=== PATIENT | male | born 1960 | race Caucasian/White ===

== ENCOUNTER → 2019-08-29 11:48 | Outpatient (BNVA) | payer MEDICARE, SELFPAY | PROVIDERS: PCP Nurse Practitioner Family; Visit Provider Nurse Practitioner Family | DX: E78.5 Hyperlipidemia, unspecified (principal); E03.9 Hypothyroidism, unspecified; H93.13 Tinnitus, bilateral; H91.93 Unspecified hearing loss, bilateral; J32.0 Chronic maxillary sinusitis; F41.9 Anxiety disorder, unspecified; J44.9 Chronic obstructive pulmonary disease, unspecified; F32.9 Major depressive disorder, single episode, unspecified; F17.200 Nicotine dependence, unspecified, uncomplicated; I10 Essential (primary) hypertension | CPT/HCPCS: 80053; 80061; 84443; 85025 ==

== ENCOUNTER → 2019-08-30 11:52 | Outpatient (BNVA) | payer MEDICARE, SELFPAY | PROVIDERS: PCP Nurse Practitioner Family; Visit Provider Nurse Practitioner Family | DX: E78.5 Hyperlipidemia, unspecified (principal); E03.9 Hypothyroidism, unspecified; H93.13 Tinnitus, bilateral; H91.93 Unspecified hearing loss, bilateral; J32.0 Chronic maxillary sinusitis; F41.9 Anxiety disorder, unspecified; J44.9 Chronic obstructive pulmonary disease, unspecified; F32.9 Major depressive disorder, single episode, unspecified; F17.200 Nicotine dependence, unspecified, uncomplicated; I10 Essential (primary) hypertension | CPT/HCPCS: 84439; 84481 ==

== ENCOUNTER → 2021-01-01 13:20 | Outpatient (BNVA) | payer MEDICARE, SELFPAY | PROVIDERS: PCP Nurse Practitioner Family; Visit Provider Nurse Practitioner Family | DX: E03.9 Hypothyroidism, unspecified (principal); I10 Essential (primary) hypertension; R53.83 Other fatigue; G47.10 Hypersomnia, unspecified; E78.5 Hyperlipidemia, unspecified; J44.9 Chronic obstructive pulmonary disease, unspecified | CPT/HCPCS: 80053; 80061; 82306; 82607; 84403; 84439; 84443; 85025 ==

== ENCOUNTER → 2021-02-09 14:27 | Outpatient (BNVA) | payer MEDICARE, SELFPAY | PROVIDERS: PCP Nurse Practitioner Family; Visit Provider Nurse Practitioner Family | DX: M25.511 Pain in right shoulder (principal); R00.9 Unspecified abnormalities of heart beat | CPT/HCPCS: 73030 ==

== ENCOUNTER 2021-02-17 06:00 | Outpatient (RCR) | payer MEDICARE, SELFPAY | END 2021-02-22 23:59 | disposition home or self-care (01) | LOC: TPT 06:00 | PROVIDERS: PCP Nurse Practitioner Family; Referring Provider Nurse Practitioner Family; Visit Provider Nurse Practitioner Family | DX: M25.511 Pain in right shoulder (principal) | CPT/HCPCS: 97110; 97162 ==

== ENCOUNTER 2021-02-23 06:00 | Outpatient (RCR) | payer MEDICARE, SELFPAY | END 2021-03-16 23:59 | disposition home or self-care (01) | LOC: TPT 06:00 | PROVIDERS: PCP Nurse Practitioner Family; Referring Provider Nurse Practitioner Family; Visit Provider Nurse Practitioner Family | DX: M25.511 Pain in right shoulder (principal) | CPT/HCPCS: 97110 ==

== ENCOUNTER → 2021-12-30 11:59 | Outpatient (BNVA) | payer MEDICARE, SELFPAY | PROVIDERS: PCP Nurse Practitioner Family; Visit Provider Nurse Practitioner Family | DX: E78.5 Hyperlipidemia, unspecified (principal); I10 Essential (primary) hypertension; F41.9 Anxiety disorder, unspecified; F32.A Depression, unspecified; L40.9 Psoriasis, unspecified; L80 Vitiligo; L21.9 Seborrheic dermatitis, unspecified; H10.9 Unspecified conjunctivitis; Z12.5 Encounter for screening for malignant neoplasm of prostate | CPT/HCPCS: 80053; 80061; 84443; 85025; G0103 ==

== ENCOUNTER → 2022-01-07 09:33 | Outpatient (BNVA) | payer MEDICARE, SELFPAY | PROVIDERS: PCP Nurse Practitioner Family; Visit Provider Nurse Practitioner Family | DX: R79.89 Other specified abnormal findings of blood chemistry (principal); E03.9 Hypothyroidism, unspecified | CPT/HCPCS: 84439; 84443; 84481 ==

== ENCOUNTER → 2022-11-11 09:40 | Outpatient (BNVA) | payer MEDICARE, SELFPAY | PROVIDERS: PCP Nurse Practitioner Family; Visit Provider Nurse Practitioner Family | DX: I10 Essential (primary) hypertension (principal); E03.9 Hypothyroidism, unspecified; F41.9 Anxiety disorder, unspecified; F32.A Depression, unspecified; G47.33 Obstructive sleep apnea (adult) (pediatric); E78.5 Hyperlipidemia, unspecified; H66.90 Otitis media, unspecified, unspecified ear | CPT/HCPCS: 80053; 80061; 84443; 85025 ==

== ENCOUNTER → 2023-04-08 09:30 | Outpatient (BNVA) | payer MEDICARE, SELFPAY | PROVIDERS: PCP Nurse Practitioner Family; Visit Provider Nurse Practitioner Family | DX: E03.9 Hypothyroidism, unspecified (principal); E78.5 Hyperlipidemia, unspecified; F41.9 Anxiety disorder, unspecified; F32.A Depression, unspecified; I10 Essential (primary) hypertension; H91.93 Unspecified hearing loss, bilateral; L30.4 Erythema intertrigo; H60.311 Diffuse otitis externa, right ear | CPT/HCPCS: 80053; 80061; 84439; 84443; 85025 ==

== ENCOUNTER → 2023-06-21 10:03 | Outpatient (BNVA) | payer MEDICARE, SELFPAY | PROVIDERS: PCP Nurse Practitioner Family; Visit Provider Family Medicine | DX: R35.0 Frequency of micturition (principal) | CPT/HCPCS: 81003 ==

== ENCOUNTER 2023-07-15 08:26 | Outpatient (CLI) | payer MEDICARE, SELFPAY ==
--- NOTE | 2023-07-15 08:30 | CT_ITS ---
WS: [id number] CT ABDOMEN PELVIS TECHNIQUE: Noncontrast CT of the abdomen and pelvis with coronal and sagittal reformatted images. CLINICAL INFORMATION: right flank pain COMPARISON: CT 2014 DLP: 606.[address] scans at [facility] use at least one of these dose optimization techniques: automated e xposure control; mA and/or kV adjustment per patient size (includes targeted exams where dose is matc hed to clinical indication); or iterative reconstruction. FINDINGS: Aneurysmal infrarenal abdominal aorta with LEFT eccentric mural thrombus or calcified dissection flap measuring 2.9 x 3.2 cm AP by transverse. Bilateral iliac calcification. Ectatic RIGHT common iliac a rtery measuring 1.5 cm. Calcified granuloma LEFT lower lobe. Lung bases are well aerated. Noncontrast liver is normal. Spleni c granulomas. Tiny esophageal hiatal hernia. Noncontrast pancreas appears normal. Adrenal glands are normal. Bilateral low-attenuation renal lesions nonspecific but likely renal cysts. Bilateral perinep hric edema can be seen with renal insufficiency. No obstructing renal or ureteral calculi. No hydrone phrosis in either kidney. Fat-containing umbilical hernia. Enlarged prostate measuring 4.5 cm. Recomm end correlation PSA. Mild bladder wall thickening can be seen with bladder outlet obstruction. No anil dence of high-grade small or large bowel obstruction. IMPRESSION: 1. No hydronephrosis in either kidney. No obstructing renal or ureteral calculi. 2. Low-attenuation lesions both kidneys indeterminate on this noncontrast CT. Recommend further eval uation with ultrasound. 3. Tiny esophageal hiatal hernia. 4. Aneurysmal infrarenal abdominal aorta with peripherally calcified mural thrombus or chronic disse ction flap. Aneurysm measures 2.9 x 3.2 cm AP by transverse. This could be further evaluated with CTA abdomen pelvis 5. Ectatic RIGHT common iliac artery measuring 1.5 cm. 6. Enlarged prostate measuring 4.7 cm with evidence of bladder outlet obstruction. Recommend correla tion PSA. 7. Fat-containing umbilical hernia. 8. No other acute findings.
== END 2023-07-15 08:27 | disposition home or self-care (01) ==
LOC: RAD 08:26
PROVIDERS: PCP Nurse Practitioner Family; Visit Provider Family Medicine
DX: N20.0 Calculus of kidney (principal); R10.9 Unspecified abdominal pain; K44.9 Diaphragmatic hernia without obstruction or gangrene; I72.2 Aneurysm of renal artery
CPT/HCPCS: 74176

== ENCOUNTER → 2023-07-19 10:36 | Outpatient (BNVA) | payer MEDICARE, SELFPAY | PROVIDERS: PCP Nurse Practitioner Family; Visit Provider Family Medicine | DX: I10 Essential (primary) hypertension (principal); E03.9 Hypothyroidism, unspecified; R17 Unspecified jaundice | CPT/HCPCS: 80053; 80061; 82140; 84443; 85025 ==

== ENCOUNTER → 2023-07-26 09:28 | Outpatient (BNVA) | payer MEDICARE, SELFPAY | PROVIDERS: PCP Nurse Practitioner Family; Visit Provider Family Medicine | DX: I10 Essential (primary) hypertension (principal); E03.9 Hypothyroidism, unspecified; R17 Unspecified jaundice; R79.89 Other specified abnormal findings of blood chemistry; R53.83 Other fatigue | CPT/HCPCS: 80074; 80076; 82140 ==

== ENCOUNTER 2023-07-28 15:00 | Emergency (ER) | payer MEDICARE, SELFPAY ==
[2023-07-28 15:03] VITALS: BP 126/81; PULSE 84; RESP 16; TEMP 36.9; O2SAT 96; BMI 31.8
--- NOTE | 2023-07-28 15:03 | ECG_ITS ---
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 Measurements Intervals [place] Rate: 80 P: 67 VT: 215 QRS: 44 QRSD: 113 T: 57 QT: 343 QTc: 396 Interpretive Statements SINUS RHYTHM WITH FIRST DEGREE AV BLOCK INCOMPLETE RIGHT BUNDLE BRANCH BLOCK [90+ ms QRS DURATION, TERMINAL R IN V1/V2, 40+ ms S IN I/aVL/V4/V5/V6] Compared to ECG 12/02/2018 21:45:04 First degree AV block now present Incomplete right bundle-branch block now present Right bundle-branch block no longer present Electronically Signed On 07-29-2023 17:03:54 CDT by Daisah Cheung M.D. [id number]
--- NOTE | 2023-07-28 15:28 | ED_ITS ---
HPI - Recheck/Abnormal Lab/Rx 2 General: Chief Complaint: Recheck/Abnormal Lab/Rx Stated Complaint: dr adhikari, abnormal labs Time Seen by Provider: 07/28/23 15:12 Source: patient Mode of arrival: ambulatory Limitations: no limitations History of Present Illness: 62-year-old male states he had his kiya ia checked a week ago and it was in the 70s states started him on lactulose he said he had it rechecked yesterday it was 124 and his PCP had recommended him to come to the ER. He denies any abdominal pain he has no history of cirrhosis he states that he has had no history of hepatic encephalopathy. He has no medical complaints here he states he feels great he had no confusion denies any fevers. Review of Systems 2 Const: Denies: fever(s), chills, body aches or change in appetite Eyes: Denies: blurry vision or eye discomfort ENMT: Denies: throat pain or dental pain Card: Denies: chest pain Resp: Denies: dyspnea GI: Denies: abdominal pain, nausea, vomiting or diarrhea : Denies: dysuria Musc: Denies: neck pain or back pain Skin/Breast: Denies: rash Neuro: Denies: headache(s) PFSH ED 2 PFSH: Medical History Vitiligo Psoriasis Anxiety and depression BJ (obstructive sleep apnea) Anxiety Depression Hyperlipidemia Hypothyroid COPD (chronic obstructive pulmonary disease) Family History Mother Hypertension Dementia Social History Smoking and tobacco/nicotine status: current every day tobacco/nicotine user (1PPD) cigarettes Packs smoked per day: 1 Second hand smoke exposure: Yes Alcohol intake: unknown Substance/Drug Use: never Caregiver/support person: Yes Lives independently: Yes Marital status: Current occupational status: employed Current gender identity: Male Special yusuf needs: No Physical Exam 2 Const: COMMON NORMALS: no acute distress, patient oriented x3 and healthy appearing HENMT: COMMON NORMALS: normocephalic and atraumatic HEAD & SCALP: n ormocephalic and atraumatic Neck/C-Spine: COMMON NORMALS: full ROM and supple Chest: COMMONS NORMALS: normal inspection of the chest and normal palpation of entire chest wall Resp: COMMON NORMALS: normal respiratory effort, No retractions, No use of accessory muscles and clear to auscultation bilaterally AUSCULTATION: clear to auscultation bilaterally Cardio: COMMON NORMALS: regular rate, regular rhythm and No murmurs present (Cardio) RATE: regular rate RHYTHM: regular rhythm GI: COMMON NORMALS: Normal to inspection, nondistended, normoactive bowel sounds present, Soft to palpation, non-tender and no masses PALPATION: Yes Soft to palpation Extremity: COMMON NORMALS: normal to inspection and full ROM Neuro: COMMON NORMALS: patient oriented x3, moves all extremities and no focal motor deficits Psych: COMMON NORMALS: mental status grossly normal, Normal thought process present and cooperative THOUGHT PROCESS: Normal thought process present Skin: COMMON NORMALS: no rashes or lesions noted and no wounds GENERAL SKIN EXAM: no rashes or lesions noted Course 2 Vital Signs: Vital signs: Vital Signs Temperature 98.5 F 07/28/23 15:03 Pulse Rate 75 07/28/23 15:36 Respiratory Rate 16 07/28/23 15:03 Blood Pressure 128/95 07/28/23 15:36 Pulse Oximetry 96 07/28/23 15:36 Oxygen Delivery Me thod Room Air 07/28/23 15:36 MDM - Recheck/Abnormal Lab/Rx Medical Decision Making Patient presents here with concern for an elevated ammonia was likely a lab error is no history of cirrhosis or any liver issues he had no altered mental status his ammonia here is 48 informed him he can stop taking the lactulose he is to follow back up with his PCP return if worsening. Medical Records I reviewed the patient's medical records. Lab Data I reviewed the patient's lab results. 07/28/23 15:25 07/28/23 15:25 Laboratory Results WBC 9.40 10^3/uL (3.29-11.43) 07/28/23 15:25 RBC 5.30 10^6/uL (3.85-5.65) 07/28/23 15:25 Hgb 16.00 g/dL (11.27-16.99) 07/28/23 15:25 Hct 49.0 % (37-53) 07/28/23 15:25 MCV 92.5 fl (82-101) 07/28/23 15:25 MCH 30.2 pg (27-33) 07/28/23 15:25 MCHC 32.7 g/dL (30-55) 07/28/23 15:25 RDW 13.3 % (12.1-15.1) 07/28/23 15:25 Plt Count 251 10^3/cmm (157-399) 07/28/23 15:25 MPV 9.9 fL (7.4-10.4) 07/28/23 15:25 Neut % (Auto) 69.4 % 07/28/23 15:25 Lymph % (Auto) 19.3 % 07/28/23 15:25 [place] % (Auto) 8.1 % 07/28/23 15:25 Eos % (Auto) 2.2 % 07/28/23 15:25 Baso % (Auto) 0.7 % 07/28/23 15: Neut # (Auto) 6.52 10^3/uL (1.8-7.7) 07/28/23 15:25 Lymph # (Auto) 1.8 10^3/uL (0.8-4.8) 07/28/23 15:25 [place] # (Auto) 0.8 10^3/uL (0.2-0.9) 07/28/23 15:25 Eos # (Auto) 0.2 10^3/uL (0.0-0.8) 07/28/23 15:25 Baso # (Auto) 0.1 10^3/uL (0.0-0.1) 07/28/23 15: Nucleated RBC % (auto) 0 % 07/28/23 15:25 Nucleated RBCs # 0.0 /100WBC 07/28/23 15:25 Sodium 143 mmol/L (136-145) 07/28/23 15:25 Potassium 4.5 mmol/L (3.5-5.1) 07/28/23 15:25 Chloride 107 mmol/L (98-107) 07/28/23 15:25 Carbon Dioxide 25 mmol/L (22-29) 07/28/23 15:25 Anion Gap 15.5 (5-19) 07/28/23 15:25 BUN 16 mg/dL (8-23) 07/28/23 15:25 Creatinine 1.0 mg/dL (0.7-1.2) 07/28/23 15:25 GFR Calculation 76.2 mL/min (90-130) L 07/28/23 15:25 Glucose 98 mg/dL (65-115) 07/28/23 15:25 Calculated Osmolality 297 mOsm/kg (285-295) H 07/28/23 15:25 Calcium 9.8 mg/dL (8.5-10.5) 07/28/23 15:25 Total Bilirubin 0.4 mg/dL (0.15-1.2) 07/28/23 15:25 AST 17 U/L (0-40) 07/28/23 15:25 ALT 18 U/L (0-41) 07/28/23 15:25 Alkaline Phosphatase 150 U/L (40-130) H 07/28/23 15:25 Ammonia 48 umol/L (16-60) 07/28/23 15:25 Troponin T Baseline < 6 ng/L (0-15) 07/28/23 15:25 Total Protein 6.7 g/dL (6.6-8.7) 07/28/23 15:25 Albumin 4.2 g/dL (3.5-5.2) 07/28/23 15:25 Globulin 2.5 g/dL (1.3-4.6) 07/28/23 15:25 No radiology studies performed this visit EKG Data EKG 1: I personally reviewed and interpreted this EKG as follows: EKG interpretation date: 07/28/23 EKG interpretation time: 15:07 Interpretation: nsr hr [address] or t wave abnormalities qrs 113 qtc 379 Discharge Plan Discharge Patient Disposition: Home Clinical Impression: Abnormal laboratory test Condition: Stable Prescriptions: No Action metoprolol tartrate 25 mg tablet 25 mg PO BID Qty: 180 1RF amoxicillin-pot clavulanate 875-125 mg tablet 1 tab PO BID 10 Days Qty: 20 0RF ketoconazole 2 % cream 1 applic topical BID 14 Days Qty: 60 0RF albuterol sulfate 2.5 mg /3 mL (0.083 %) solution for nebulization 2.5 mg inhalation QID PRN (Reason: shortness of breath or wheezing) Qty: 90 0RF fluconazole [Diflucan] 100 mg tablet 100 mg PO DAILY 7 Days Qty: 7 0RF ciprofloxacin-dexamethasone 0.3-0.1 % drops,suspension 4 drp otic (ear) BID 7 Days Qty: 7.5 0RF methylprednisolone [Medrol (Elpidio)] 4 mg tablets,dose pack See Rx Instructions PO PER PKG DIR Qty: 21 0RF Rx Instructions: PO PER PKG DIR Cortisporin-TC 3.3-3-10-0.5 mg/mL drops,suspension 4 drp otic (ear) TID Qty: 10 0RF (DME) APAP 5-20 cm H2O See Rx Instructions .Route .MEDSUPPLY Qty: 1 0RF Rx Instructions: As directed atorvastatin 80 mg tablet See Rx Instructions .ROUTE .COMPLEX Qty: 90 1RF Dose Instruction: TAKE ONE TABLET BY MOUTH DAILY Rx Instructions: TAKE ONE TABLET BY MOUTH DAILY tamsulosin [Flomax] 0.4 mg capsule 0.4 mg PO DAILY Qty: 20 0RF enalapril maleate 10 mg tablet 10 mg PO DAILY Qty: 90 1RF levothyroxine 88 mcg tablet 88 mcg PO DAILY Qty: 90 0RF Rx Instructions: one tab 30 mins before breakfast citalopram 20 mg tablet See Rx Instructions .ROUTE .COMPLEX Qty: 90 1RF Dose Instruction: TAKE ONE TABLET BY MOUTH DAILY Rx Instructions: TAKE ONE TABLET BY MOUTH DAILY lactulose 10 gram/15 mL solution 20 g PO BID 5 Days Qty: 300 0RF Rx Instructions: TAKE 30cc po BID x 5 days Discharge Orders: Discharge ED (Routine); Ordered 07/28/23 Ordered By: Erin Coy Referrals: Savannah Acuna FNP [Primary Care Provider] - Discharge Diet: Advance as tolerated Discharge Activity: Resume usual activity Activity Restrictions/Additional Instructions: Your ammonia level here was normal the elevated ammonia was likely a lab error Coding Level of Care Code ED Airfield Manager for Seymour Robbins
[2023-07-28 15:36] VITALS: BP 128/95; PULSE 75; O2SAT 96
[2023-07-28 15:48] LABS: Basophils # 0.1 10^3/uL (0.0-0.1); Basophils % 0.7 %; Eosinophils # 0.2 10^3/uL (0.0-0.8); Eosinophils % 2.2 %; Lymphocytes # 1.8 10^3/uL (0.8-4.8); Lymphocytes % 19.3 %; Mean Corpuscular HGB Conc 32.7 g/dL (30-55); Mean Corpuscular Hemoglobin 30.2 pg (27-33); Mean Corpuscular Volume 92.5 fl (82-101); Mean Platelet Volume 9.9 fL (7.4-10.4); Monocytes # 0.8 10^3/uL (0.2-0.9); Monocytes % 8.1 %; Neutrophils # 6.52 10^3/uL (1.8-7.7); Neutrophils % 69.4 %; Nucleated Red Blood Cells % 0 %; Platelet Count 251 10^3/cmm (157-399); Red Cell Distribution Width 13.3 % (12.1-15.1)
[2023-07-28 15:58] LABS: Alanine Aminotransferase 18 U/L (0-41); Albumin Level 4.2 g/dL (3.5-5.2); Alkaline Phosphatase 150 U/L (40-130); Anion Gap 15.5 (5-19); Aspartate Amino Transferase 17 U/L (0-40); Blood Urea Nitrogen 16 mg/dL (8-23); Calcium 9.8 mg/dL (8.5-10.5); Carbon Dioxide 25 mmol/L (22-29); Chloride 107 mmol/L (98-107); Creatinine Clr Calc Pharmacy 93.4213; Globulin 2.5 g/dL (1.3-4.6); Glomerular Filtration Rate 76.2 mL/min (90-130); Glucose 98 mg/dL (65-115); Osmolality Calculated 297 mOsm/kg (285-295); Potassium 4.5 mmol/L (3.5-5.1); Sodium 143 mmol/L (136-145); Total Bilirubin 0.4 mg/dL (0.15-1.2); Total Protein 6.7 g/dL (6.6-8.7); Troponin(5th) Baseline < 6 ng/L (0-15)
[2023-07-28 15:59] LABS: Ammonia 48 umol/L (16-60)
== END 2023-07-28 16:15 | disposition home or self-care (01) ==
PROVIDERS: Emergency Provider Emergency Medicine; PCP Nurse Practitioner Family
DX: R79.9 Abnormal finding of blood chemistry, unspecified (principal); F17.210 Nicotine dependence, cigarettes, uncomplicated; E78.5 Hyperlipidemia, unspecified; J44.9 Chronic obstructive pulmonary disease, unspecified
CPT/HCPCS: 80053; 82140; 84484; 85025; 93005; 99284

== ENCOUNTER → 2024-06-01 12:06 | Outpatient (BNVA) | payer MEDICARE, SELFPAY | PROVIDERS: Family Provider Nurse Practitioner Family; PCP Nurse Practitioner Family; Visit Provider Nurse Practitioner Family | DX: I10 Essential (primary) hypertension (principal); Z12.5 Encounter for screening for malignant neoplasm of prostate | CPT/HCPCS: 80053; 80061; 84443; 85025; G0103 ==